=== PATIENT | female | born 1955 | race Caucasian/White ===

== ENCOUNTER 2023-09-23 14:42 | Emergency (ER) | payer OTHER ==
[~2023-09-23] VITALS: Ht 167.6 cm; Wt 72.6 kg
[2023-09-23 14:55] VITALS: BP 136/89; PULSE 89; RESP 18; TEMP 97.8; O2SAT 98
[2023-09-23] MEDS: ACETAMINOPHEN EXTRA STRENGTH 500 MG TAB PO ONE (17:29)
[2023-09-23] MEDS: KETOROLAC 30 MG/ML VIAL IM ONE (17:30)
[2023-09-23 18:00] VITALS: BP 121/53; PULSE 78; RESP 18; TEMP 97.8; O2SAT 95
== END 2023-09-23 18:00 | disposition home or self-care (01) ==
LOC: MED 14:42
DX: S03.2XXA Dislocation of tooth, initial encounter (principal); S09.90XA Unspecified injury of head, initial encounter; I10 Essential (primary) hypertension; Z79.899 Other long term (current) drug therapy; V49.88XA Car occupant (driver) (passenger) injured in other specified transport accidents, initial encounter; Y93.89 Activity, other specified; Y92.89 Other specified places as the place of occurrence of the external cause; Y99.8 Other external cause status
CPT/HCPCS: 70450; 82948; 96372; 99285; J1885